=== PATIENT | male | born 1935 | race Caucasian/White ===

== ENCOUNTER 2017-11-20 05:33 | Day surgery (SDC) | payer MEDICARE, BC ==
[2017-11-20] MEDS ORDERED: BUPIVACAINE 0.75% (MPF) 10 ML INJ (06:26)
[2017-11-20] MEDS ORDERED: LIDOCAINE 1% (MPF) 10 ML INJ (06:26)
[2017-11-20] MEDS ORDERED: LIDOCAINE 2% (SDV) 5 ML INJ ×3 (06:27→09:06)
[2017-11-20] MEDS ORDERED: TIMOLOL 0.5% 5 ML OPH (06:27)
[2017-11-20] MEDS ORDERED: EPINEPHrine 1 MG INJ (06:27)
[2017-11-20] MEDS: NEPAFENAC 0.1% 3 ML OPH RIGHT EYE (06:40)
[2017-11-20] MEDS: CYCLOPENTOLATE 2% 2 ML OPH RIGHT EYE (06:40)
[2017-11-20] MEDS: PHENYLephrine 10% 5 ML OPH RIGHT EYE (06:40)
[2017-11-20] MEDS: MOXIFLOXACIN 0.5% 3 ML OPH RIGHT EYE (06:40)
[2017-11-20] MEDS ORDERED: SODIUM BICARBONATE (IV ADD) 50 ML (06:44)
[2017-11-20] MEDS: INSULIN REGULAR, HUMAN 100 UNIT/1 ML 3ML VIAL SC (06:46)
[2017-11-20] MEDS: LIDOCAINE 1% (MPF) 10 ML INJ INJ (07:15)
[2017-11-20] MEDS ORDERED: ONDANSETRON 4 MG INJ IV (07:30)
[2017-11-20] MEDS ORDERED: HYDROmorphONE 1 MG/5 ML IV SYRINGE IV (07:30)
[2017-11-20] MEDS ORDERED: PROCHLORPERAZINE 10 MG INJ IV (07:30)
[2017-11-20] MEDS ORDERED: FENTAnyl 50 MCG/ML VIAL IV (07:30)
[2017-11-20] MEDS ORDERED: DIPHENHYDRAMINE 50 MG INJ IV (07:30)
[2017-11-20] MEDS ORDERED: OXYCODONE/ACETAMINOPHEN (5/325) TAB PO (07:30)
[2017-11-20] MEDS ORDERED: FENTAnyl 50 MCG/ML VIAL (07:34)
[2017-11-20] MEDS ORDERED: PROPOFOL 0 ML (07:34)
[2017-11-20] MEDS ORDERED: MIDAZOLAM 1 MG/ML 2 ML INJ ×2 (07:34→09:06)
[2017-11-20] MEDS ORDERED: hydrALAzine 20 MG INJ (07:36)
[2017-11-20] MEDS: TIMOLOL 0.5% 5 ML OPH RIGHT EYE (08:03)
[2017-11-20] MEDS ORDERED: GLYCOPYRROLATE 0.4 MG INJ (08:26)
[2017-11-20] MEDS ORDERED: PROPOFOL 20 ML (09:06)
== END 2017-11-20 09:27 | disposition home or self-care (01) ==
LOC: SDS 05:33
DX: H25.11 Age-related nuclear cataract, right eye (principal); I10 Essential (primary) hypertension; E11.9 Type 2 diabetes mellitus without complications; Z79.4 Long term (current) use of insulin
CPT/HCPCS: 66984; 82962; 93005